=== PATIENT | female | born 1970 | race Caucasian/White ===

== ENCOUNTER 2016-12-03 13:21 | Emergency (ER) | payer MEDICAID ==
[2016-12-03] MEDS ORDERED: OPTIRAY 350 100 ML VIAL HMH IV ONE (13:22)
[2016-12-03] MEDS ORDERED: ONDANSETRON 4 MG VIAL ONE (16:33)
[2016-12-03] MEDS ORDERED: FAMOTIDINE 20 MG INJ ONE (16:33)
== END 2016-12-03 19:43 | disposition home or self-care (01) ==
LOC: ER 13:21
DX: R10.9 Unspecified abdominal pain (principal)
CPT/HCPCS: 36415; 74022; 74177; 80053; 81003; 83690; 84703; 85025; 96374; 96375